=== PATIENT | female | born 1965 | race Caucasian/White ===

== ENCOUNTER 2018-02-23 12:09 | Day surgery (SDC) | payer OTHER ==
[~2018-02-23 12:09] MED LIST: CEFAZOLIN 2 GM/50 ML (PMX) 50 ML IVPB; SOD CHLORIDE 0.9% 1,000 ML IV
[2018-02-23] MEDS ORDERED: METOCLOPRAMIDE 10 MG INJ (17:18)
[2018-02-23] MEDS ORDERED: KETOROLAC 30 MG INJ (17:18)
[2018-02-23] MEDS ORDERED: MIDAZOLAM 1 MG/ML 2 ML INJ (17:18)
[2018-02-23] MEDS ORDERED: ONDANSETRON 4 MG INJ (17:18)
[2018-02-23] MEDS ORDERED: FENTAnyl 50 MCG/ML VIAL (17:18)
[2018-02-23] MEDS ORDERED: PROPOFOL 20 ML (17:18)
[2018-02-23] MEDS ORDERED: CEFAZOLIN 1 GM INJ (17:21)
[2018-02-23] MEDS ORDERED: HYDROmorphONE (0.2 MG/ML) 10ML SYG IV (18:00)
[2018-02-23] MEDS ORDERED: ONDANSETRON 4 MG INJ IV ×2 (18:00→18:30)
[2018-02-23] MEDS ORDERED: KETOROLAC 30 MG INJ IV ×2 (18:00→18:30)
[2018-02-23] MEDS: BUPIVACAINE 0.5%/EPI (SDV) 30 ML INJ (18:07)
[2018-02-23] MEDS ORDERED: IBUPROFEN 600 MG TAB PO (18:30)
[2018-02-23] MEDS ORDERED: BACITRACIN/POLYMYXIN 28.35 GM OINT TOP (18:41)
== END 2018-02-23 19:31 | disposition home health service (06) ==
LOC: SDS 12:09
DX: L72.0 Epidermal cyst (principal); R00.1 Bradycardia, unspecified
CPT/HCPCS: 21011; 71045; 84703; 88307; 93005